=== PATIENT | male | born 1940 | race Caucasian/White ===

== ENCOUNTER 2017-05-20 06:01 | Day surgery (SDC) | payer OTHER ==
[~2017-05-20] VITALS: Ht 175.3 cm; Wt 100.2 kg
--- NOTE | ~2017-05-20 | S ---
[facility] [place] [address] SURGICAL PATH RPT PROCEDURE Name: MICHELE BENITEZ Room #: DEP [facility]#: [id number] Admission: 05/20/17 Date of : 36 Discharge: 05/20/17 Report #: [id number] Path Case #: [id number] PATHOLOGY REPORT COLLECTION DATE: 05/20/2017 RECEIVED DATE: 05/20/2017 SUBMITTING PHYS: Dr. Jay Angelo OTHER PHYS: Dr. Titus Morales SPECIMEN(S) RECEIVED: A.Right lower lid * * * * * * * * * * * * FINAL DIAGNOSIS: Skin and subcutaneous tissue, "right lower lid", excision: - BASAL CELL CARCINOMA; MARGINS FREE OF INVASIVE TUMOR. (CLW:mm; 05/21/2017) PATHOLOGIST: Deandra Jean M.D. REPORT ELECTRONICALLY SIGNED BY: Deandra Jean M.D. DATE/TIME: 05/21/2017 13:33 * * * * * * * * * * * * GROSS PATHOLOGY: Received fresh, labeled "Michele Benitez and right lower lid basal cell carcinoma", is a roughly rectangular piece of pink-pablo skin which measures 0.7 x 0.6 x 0.5 cm. Orientation is provided on the underlying piece of cardboard. It is noted that the superior end of the specimen does not represent a true margin. The specimen is inked as follows: inferior tip-red, lateral half margin-blue, medial half margin-black. The specimen is trisected and submitted for one frozen section. The frozen section is then submitted as A1. (SKM:javed; 05/20/2017) FROZEN SECTION DIAGNOSIS: (Michelle Ng MD) "Right lower lid basal cell carcinoma": - Basal cell carcinoma present focally; margins of excision negative. Findings relayed to Dr. [place] at the time of the procedure. [facility] at [facility] [address] [place] [address] CLINICAL HISTORY: [facility] [address] [place] [id number] SURGICAL PATH RPT PROCEDURE Name: MICHELE BENITEZ Room #: [facility].#: [id number] Admission: 05/20/17 Date of : 36 Discharge: 05/20/17 Report #: [id number] Path Case #: [id number] Basal cell carcinoma, right lower lid INITIAL CPT CODE(S): A; 56008, 69012 Professional services performed by [facility] at [facility] [address] [place] [address] Technical services performed by [facility] at [address] [place] [address], [facility] [address] [address]. [facility] [address] [place] [address] PHONE: [phone] DIRECTOR: Aaron Robb M.D. * * * END OF REPORT * * *
[~2017-05-20 06:01] MED LIST: MOBIC15 MG PO; VALACYCLOVIR1000 MG PO
[2017-05-20 07:49] VITALS: BP 162/89
== END 2017-05-20 09:25 | disposition home or self-care (01) ==
LOC: OR 06:01 → TBA 06:02 → OR 09:25
DX: C44.112 Basal cell carcinoma of skin of right eyelid, including canthus (principal); M19.90 Unspecified osteoarthritis, unspecified site; Z96.653 Presence of artificial knee joint, bilateral; Z85.820 Personal history of malignant melanoma of skin; Z96.642 Presence of left artificial hip joint; Z90.49 Acquired absence of other specified parts of digestive tract; Z87.442 Personal history of urinary calculi; Z98.890 Other specified postprocedural states
CPT/HCPCS: 50010; 50101; 50398; 51636; 56528; 56531; 62110; 62850; 70005